=== PATIENT | female | born 1945 | race Caucasian/White ===

== ENCOUNTER 2017-05-22 11:36 | Day surgery (SDC) | payer MEDICARE ==
[~2017-05-22 11:36] MED LIST: Buffered Lidocaine 0.9% SYRIN* 5 ML/SYR SYRINGE INTRADERM ONE; Famotidine IV* 10 MG/ML 2 ML (20 mg) IV ONE; Famotidine IV* 10 MG/ML 2 ML (20 mg) ONE
[2017-05-22] MEDS ORDERED: Levalbuterol 0.63MG/3ML NEB* UNIT OF USE INH ONE ×3 (12:54→14:25)
[2017-05-22] MEDS ORDERED: fentaNYL* 50 MCG/ML 2 ML VIAL (100 MCG VIAL) ONE (13:04)
[2017-05-22] MEDS ORDERED: Midazolam* 1 MG/ML 5 ML VIAL (5 MG) ONE (13:05)
[2017-05-22] MEDS ORDERED: Rocuronium* 10 MG/ML VIAL ONE (13:05)
[2017-05-22] MEDS ORDERED: Glycopyrrolate IV* 0.2 MG/ML 1 ML VIAL ONE (13:08)
[2017-05-22] MEDS ORDERED: Succinylcholine* 20 MG/ML 10 ML VIAL ONE (13:08)
[2017-05-22] MEDS ORDERED: Propofol* 10 MG/ML 20 ML BTL IV PUSH ONE (13:08)
[2017-05-22] MEDS ORDERED: Ondansetron INJ* 2 MG/ML VIAL ONE (13:08)
[2017-05-22] MEDS ORDERED: Dexamethasone IV* 4 MG/ML 1 ML (4 MG) ONE (13:08)
[2017-05-22] MEDS ORDERED: Lidocaine 2% PF * 5 ML VIAL ONE (13:08)
[2017-05-22] MEDS ORDERED: Levalbuterol 0.63MG/3ML NEB* UNIT OF USE INH PRN (13:51)
[2017-05-22] MEDS ORDERED: oxyCODONE TAB* 5 MG TAB PO PRN (13:51)
[2017-05-22] MEDS ORDERED: DiMENhydriNATE IV* 50 MG/ML VIAL IV PUSH PRN (13:51)
[2017-05-22] MEDS ORDERED: Naloxone* 0.4 MG/ML 1 ML VIAL IV PRN (13:51)
[2017-05-22] MEDS ORDERED: fentaNYL* 50 MCG/ML 2 ML VIAL (100 MCG VIAL) IV PRN (13:51)
[2017-05-22] MEDS ORDERED: Acetaminophen TAB* 325 MG PO PRN (13:51)
[2017-05-22 14:51] VITALS: BP 126/67
--- NOTE | 2017-05-23 09:46 | PRO ---
BRONCHOSCOPY REPORT: DATE OF PROCEDURE: 05/22/17 PROCEDURE PERFORMED: Bronchoscopy with endobronchial ultrasound-guided fine needle aspiration from R4 and station 7 lymph nodes. PREPROCEDURAL DIAGNOSIS: Lung mass, rule out malignancy. POSTPROCEDURAL DIAGNOSIS: Possible lung cancer. ANESTHESIA: General anesthesia. ANESTHESIOLOGIST: Dr. Florentino. DESCRIPTION OF PROCEDURE: Informed consent was obtained from the patient prior to the procedure after all the risks and benefits were thoroughly explained. The patient recently had low-dose CT scan for lung cancer screening and was noted to have right-sided lung mass and prominent R4 lymph node. Time-out was agreed on by attending staff prior to the procedure. The patient was intubated with a size 8.0 endotracheal tube. Flexible Olympus bronchoscope was inserted through ET tube for airway inspection. Thick white secretions were noted bilaterally and were suctioned out. No endobronchial lesions were noted. The patient was noted to have tracheobronchomalacia. Secretions were suctioned and bronchoscope was withdrawn. EBUS bronchoscope was inserted through ET tube. Bronchoscope was stationed at the level of R4 lymph node, which was sampled with 5 passes. Rapid on-site evaluation revealed lymphatic tissue. Rest of the sample was placed in CytoLyt and also air dried slides were made for further stains. Station 7 lymph node was accessed with 3 passes. Rapid on- site evaluation revealed lymphatic tissue. No suspicious cells were noted on STEPHY examination. Bronchoscope was then withdrawn. The patient was extubated and seen in Recovery in optimal condition. The patient tolerated the procedure well. Awaiting final results. [id number]/[facility] #: [id number] MTDD
== END 2017-05-22 15:17 | disposition home or self-care (01) ==
LOC: OR 11:36
PROVIDERS: ATTEND Internal Medicine
DX: C77.1 Secondary and unspecified malignant neoplasm of intrathoracic lymph nodes (principal); R91.1 Solitary pulmonary nodule; R91.8 Other nonspecific abnormal finding of lung field; J44.9 Chronic obstructive pulmonary disease, unspecified; R09.02 Hypoxemia; Z87.891 Personal history of nicotine dependence
CPT/HCPCS: 36415; 81445; 86803; 88172; 88173; 88177; 88305; 88341; 88342; 88360; 93005; J0330; J1100; J2250; J2405; J2704; J3010

== ENCOUNTER 2017-06-21 11:40 | Day surgery (SDC) | payer MEDICARE ==
[~2017-06-21 11:40] MED LIST changes: -Famotidine IV* 10 MG/ML 2 ML (20 mg) IV ONE; -Famotidine IV* 10 MG/ML 2 ML (20 mg) ONE; +Famotidine TAB* 20 MG PO ONE; +Metoclopramide TAB* 10 MG PO ONE
[2017-06-21] MEDS ORDERED: Famotidine TAB* 20 MG ONE (11:45)
[2017-06-21] MEDS ORDERED: Metoclopramide TAB* 10 MG ONE (11:45)
[2017-06-21] MEDS ORDERED: Buffered Lidocaine 0.9% SYRIN* 5 ML/SYR SYRINGE ONE (11:46)
[2017-06-21] MEDS ORDERED: Dexamethasone IV* 4 MG/ML 1 ML (4 MG) ONE (12:22)
[2017-06-21] MEDS ORDERED: Ondansetron INJ* 2 MG/ML VIAL ONE (12:22)
[2017-06-21] MEDS ORDERED: Lidocaine 2% PF * 5 ML VIAL ONE (12:22)
[2017-06-21] MEDS ORDERED: Propofol* 10 MG/ML 20 ML BTL IV PUSH ONE ×2 (12:22→14:00)
[2017-06-21] MEDS ORDERED: fentaNYL* 50 MCG/ML 2 ML VIAL (100 MCG VIAL) ONE (12:23)
[2017-06-21] MEDS ORDERED: Midazolam* 1 MG/ML 5 ML VIAL (5 MG) ONE (12:23)
[2017-06-21] MEDS ORDERED: Levalbuterol 0.63MG/3ML NEB* UNIT OF USE INH ONE ×2 (12:35→12:36)
[2017-06-21] MEDS ORDERED: Naloxone* 0.4 MG/ML 1 ML VIAL IV PRN (14:41)
[2017-06-21] MEDS ORDERED: Ondansetron INJ* 2 MG/ML VIAL IV PRN (14:41)
[2017-06-21 15:19] VITALS: BP 154/87
--- NOTE | 2017-06-24 04:18 | PRO ---
DATE: 06/21/17 [facility] REFERRING PRACTITIONERS: Monroe Barrera NP, [facility]; Sampson Rios * PROCEDURE: Colonoscopy to the cecum and cold snare polypectomy right colon, hot snare polypectomy descending colon, biopsy of sigmoid colon mass, and tattooing x3 approximately 4 cm distal to the sigmoid mass. INDICATION: This 71-year-old woman who has never had a colonoscopy on low-dose lung screening (she is an active smoker) was found to have a spiculated lesion in the right lower lobe. PET scan then showed a lesion in the sigmoid colon. MRI of the brain showed a lesion that had not shown up on the PET scan. There is a question as to whether it could be a glioma. She states that she has been seeing some blood in the stool for a couple of years, but it is intermittent. Everyone else in the family has had a colonoscopy. Apparently, no malignancy was found. She does have chronic lung disease. She states that chemoradiation is the plan for her lung, start date to be determined by colonoscopic findings. ENDOSCOPIST: Dr. Rosado MEDICATIONS: Anesthesia assistance. FINDINGS: She is chronically ill appearing woman with a smoker's voice and countenance. Her abdomen is soft and nontender. Perianal inspection and rectal are normal. Initial views show an excellent prep and normal mucosa. Advancing into the sigmoid, no abnormality is noted until about 30 cm a large mass is seen. It does appear to be mobile and potentially not deforming the wall. It is at least 5.5 to 6 cm in size. It does move suggesting there is a peduncle, but it cannot be easily defined and no clear-cut plane to encircle it can be found. There are a few diverticula. Approximately, 15-20 cm proximal to the mass, a standard pedunculated polyp about 12-13 mm is seen. Due to the broad base, it was removed with snare cautery. It was removed intact. The cecum was reached with ease. It was lavaged clear. The cecum and ileocecal valve were normal. Two haustral markings distal to the ileocecal valve, a small 4-5 mm polyp was removed with cold snare and suction retrieved. Further withdrawal showed no other lesions. The mass was then biopsied times 6 or 7. Adrienne ink tattooing was then done just distal to the mass estimated 4 cm, triangulated with good localization of 1 to 1.25 cc of tattooing agent. Final views in the rectum including retroflexion were normal. IMPRESSION: 1. Saru-[id number] left colonic diverticulosis. 2. Colon polyps - right and descending colon appearing benign. 3. Sigmoid colon mass - biopsy is pending and area tattooed. It may be that the symptomatic or clinical potential of this sigmoid mass is greater than either the other abnormalities and a conservative surgical approach may serve her well. Addendum: WILLIAM MANDEL , TEQUILA (for largest lesion) [id number]/[facility] #: [id number] [facility]ITALRachel
== END 2017-06-21 15:53 | disposition home or self-care (01) ==
LOC: OR 11:40
PROVIDERS: ATTEND Internal Medicine Gastroenterology
DX: D12.4 Benign neoplasm of descending colon (principal); D12.2 Benign neoplasm of ascending colon; D12.5 Benign neoplasm of sigmoid colon; C34.91 Malignant neoplasm of unspecified part of right bronchus or lung; G93.89 Other specified disorders of brain; K92.1 Melena; J44.9 Chronic obstructive pulmonary disease, unspecified; Z87.891 Personal history of nicotine dependence; K57.30 Diverticulosis of large intestine without perforation or abscess without bleeding; R93.3 Abnormal findings on diagnostic imaging of other parts of digestive tract
CPT/HCPCS: 88305; A9270-GY; J1100; J2250; J2405; J2704; J3010

== ENCOUNTER 2017-07-02 07:19 | Day surgery (SDC) | payer MEDICARE ==
[~2017-07-02 07:19] MED LIST changes: +Levalbuterol 0.63MG/3ML NEB* UNIT OF USE INH ONE; -Metoclopramide TAB* 10 MG PO ONE
[2017-07-02] MEDS ORDERED: ceFAZolin 2 GM PREMIX (*) 2 GM/50 ML BAG IVPB ONE (07:29)
[2017-07-02] MEDS ORDERED: Famotidine TAB* 20 MG ONE (07:29)
[2017-07-02] MEDS ORDERED: Midazolam* 1 MG/ML 5 ML VIAL (5 MG) ONE (07:46)
[2017-07-02] MEDS ORDERED: fentaNYL* 50 MCG/ML 2 ML VIAL (100 MCG VIAL) ONE (07:46)
[2017-07-02] MEDS ORDERED: Levalbuterol 0.63MG/3ML NEB* UNIT OF USE INH ONE ×3 (08:05→10:25)
[2017-07-02] MEDS ORDERED: DiMENhydriNATE IV* 50 MG/ML VIAL IV PUSH PRN (08:28)
[2017-07-02] MEDS ORDERED: Acetaminophen TAB* 325 MG PO PRN (08:28)
[2017-07-02] MEDS ORDERED: Naloxone* 0.4 MG/ML 1 ML VIAL IV PRN (08:28)
[2017-07-02] MEDS ORDERED: Lidocaine 1% INJ* 10 MG/ML 30 ML SDV ONE ×2 (08:28→09:52)
[2017-07-02] MEDS ORDERED: Dexamethasone IV* 4 MG/ML 1 ML (4 MG) ONE (08:57)
[2017-07-02] MEDS ORDERED: Ketorolac INJ* 30 MG/ML 1 ML VIAL ONE (08:57)
[2017-07-02] MEDS ORDERED: DiMENhydriNATE IV* 50 MG/ML VIAL ONE (08:57)
[2017-07-02] MEDS ORDERED: Propofol* 10 MG/ML 20 ML BTL IV PUSH ONE (08:57)
--- NOTE | 2017-07-02 10:23 | BRIEFOPN ---
Brief Operative Note - Surgery Procedures: PRE/POST OP DX: RIGHT LL LUNG CA PROC: POWERPORT PLACEMENT SURG: MECENAS ASSIST: NONE ANES: LOCAL/MAC; DAYA EBL: 10ML IVF: 1100ML LR SPEC: NONE DRAINS/COMPL: NONE COND: STABLE; TO RR FINDINGS: FAILED ATTEMPT TO ACCESS L SUBCLAV/LIJ. SUCCESSFUL PLACEMENT OF RIJ 8 FR POWERPORT.
[2017-07-02] MEDS ORDERED: oxyCODONE/Acetamin 5/325 MG* TAB PO PRN (10:24)
[2017-07-02 11:03] VITALS: BP 163/85
--- NOTE | 2017-07-02 12:16 | RAD ---
CPT II Codes: G9500 INDICATION: Lung cancer TECHNIQUE: Intraoperative fluoroscopy was provided during right internal jugular vein Mediport placement. FINDINGS: 2 spot films depict placement of a right internal jugular vein Mediport with the tip terminating at the cavoatrial junction.. Fluoroscopy time: 7 seconds IMPRESSION: As above.
--- NOTE | 2017-07-02 12:17 | RAD ---
Indication: Status post central line placement. Single frontal view of the chest performed at 1033 hours was reviewed. Prior films are not available for review. No mediastinal shift is noted. Heart is of normal size and configuration. Lung romo appear clear. Central catheter is in place with the tip in the right atrium. No pneumothorax is noted. Artifact is noted in the right midlung field. IMPRESSION: NO PNEUMOTHORAX IS NOTED. CENTRAL CATHETER IS IN THE RIGHT ATRIUM.
--- NOTE | 2017-07-03 12:41 | OP ---
CC: Sampson Rios MD; Monroe Barrera NP * DATE OF OPERATION: 07/02/17 - [facility] DATE OF : 45 SURGEON: Margarito Nicole MD SSRS DEVELOPER: None. ANESTHESIOLOGIST: Dr. Florentino. ANESTHESIA: Local, MAC. PRE-OP DIAGNOSIS: Right lung carcinoma. POST-OP DIAGNOSIS: Right lung carcinoma. OPERATIVE PROCEDURE: Placement of a right internal jugular PowerPort. ESTIMATED BLOOD LOSS: 10 mL. IV FLUIDS: Crystalloid. SPECIMENS: None. DRAINS: None. COMPLICATIONS: None. COUNTS: The instrument, needle, and sponge counts were correct. DESCRIPTION OF PROCEDURE: The patient was brought to the operating room and placed on the table supine. Sequential compression devices were placed on both lower extremities. Intravenous sedation was administered. Her neck and chest were prepped and draped in sterile fashion and a time-out was performed. Local anesthetic was infiltrated for a left subclavian approach. Multiple attempts were made to access the left subclavian vein, without success. The patient was quite uncooperative at this point and therefore, no additional subclavian attempts were made on the left side; instead a decision was made to access the left internal jugular vein and this was performed using ultrasound guidance. After accessing the vein, attempts to pass the guidewire were unsuccessful in directing the wire into the superior vena cava. It seemed to preferentially want to go into the azygos vein or curl back upon itself. This led to abandoning the left internal jugular approach. The decision was made to perform access in the right internal jugular, again under ultrasound guidance, and this was achieved without difficulty and the position of the wire was confirmed under fluoroscopy. Local anesthetic was then infiltrated into the right upper chest to create the pocket. A transverse incision was made with a scalpel and then the subcutaneous tissues were divided with cautery and a pocket was created inferior to the incision. An 8-Ethiopian PowerPort was then back tunneled from a counter incision made at the guidewire insertion site in the right neck and then the peel-away sheath and dilator were advanced over the guidewire into the superior vena cava under direct visualization. The catheter was advanced to about 20 cm, with the tip being identified at the atriocaval junction. The catheter was cut to 28 cm and connected to the port, which was placed into the pocket, and sutured in place with a single 2-0 Prolene suture. The port was accessed. It estela and flushed easily. The pocket was closed in two layers with 3-0 Vicryl to approximate subcutaneous tissue, 4-0 Monocryl in running fashion to approximate the skin at the pocket, and also at the counter incision. Steri-Strips were applied with Tegaderm dressing. The patient tolerated the procedure well and was transferred to Recovery in stable condition. A postprocedural x-ray revealed good position of the catheter and the port, and no evidence of pneumothorax. [id number]/[facility] #: [id number] [facility]
== END 2017-07-02 11:15 | disposition home or self-care (01) ==
LOC: OR 07:19
PROVIDERS: ATTEND Surgery
DX: C34.31 Malignant neoplasm of lower lobe, right bronchus or lung (principal)
CPT/HCPCS: 71045; 76000; A9270-GY; C1788; J0690; J1100; J1240; J1642; J1885; J2250; J2704; J3010

== ENCOUNTER 2017-08-08 15:43 | Inpatient (IN) | payer MEDICARE ==
[2017-08-08] MEDS ORDERED: Ondansetron INJ* 2 MG/ML VIAL IV PRN (16:00)
[2017-08-08] MEDS ORDERED: Acetaminophen TAB* 325 MG PO PRN (16:00)
[2017-08-08] MEDS ORDERED: Digoxin IV* 0.5 MG/2 ML AMP (0.25 MG/ML) IV SLOW PU ONE (16:05)
[2017-08-08] MEDS ORDERED: Iohexol 350* (CONTRAST) 500 ML MDV IV ONE (18:33)
[2017-08-08] MEDS: Enoxaparin(*) 80 MG/0.8 ML SYR SUBCUT SCH (19:26)
--- NOTE | 2017-08-08 19:37 | RAD ---
INDICATION: Chest pain, new atrial fibrillation. COMPARISON: Comparison is made with a prior PET/CT study from May 31, 2017. TECHNIQUE: A CT angiogram of the chest was performed with intravenous following intravenous injection of 62 ml of Omnipaque 350 nonionic contrast. Contiguous axial sections were obtained from the lung apices through the lung bases. Images were reconstructed in the coronal and sagittal planes. FINDINGS: There is relatively homogeneous opacification of the pulmonary arteries. No intraluminal filling defect or pulmonary embolism is seen. The heart is within normal limits in size. No pericardial effusion is present. The thoracic aorta is normal in caliber and demonstrates homogeneous contrast opacification. No significant enlarged mediastinal or hilar lymph nodes are seen. There is a small air-containing structure adjacent to the right lateral aspect of the esophagus present at the thoracic inlet and unchanged from the prior PET/CT study suggestive of a diverticulum. There is mild to moderate centrilobular emphysematous change. There is a 1 cm nodule present in the right lower lobe which appears slightly less prominent than on the prior exam and previously measured approximately 1.3 cm. There is a small infiltrate adjacent to the right heart border likely representing atelectasis. There is a small infiltrate in the left lower lobe most consistent with dependent subsegmental atelectasis. 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 There is a small hypodense hepatic lesions seen on the most inferior image measuring 0.6 cm in size and not well seen on the prior noncontrast study. No significant focal osseous abnormality is seen. IMPRESSION: 1. NO EVIDENCE FOR PULMONARY EMBOLISM. 2. SMALL RIGHT MIDDLE LOBE INFILTRATE SUGGESTIVE OF ATELECTASIS. 3. RIGHT LOWER LOBE PULMONARY NODULE SLIGHTLY SMALLER IN SIZE. 4. SMALL HYPODENSE HEPATIC LESION RECOMMEND A HEPATIC ULTRASOUND FOR FURTHER EVALUATION.
[2017-08-08] MEDS: Sucralfate SUSP 1 GM/10 ml 10 ML UDC PO SCH (23:16)
[2017-08-08] MEDS: NS 0.9% 1000 ML* 1,000 ML IV SCH (23:20)
[2017-08-09] MEDS: Enoxaparin(*) 80 MG/0.8 ML SYR SUBCUT SCH (05:36)
[2017-08-09 06:42] LABS: ABS Basophils 0 10^3/ul (0-0.2); ABS Eosinophils 0 10^3/ul (0-0.6); ABS Lymphocytes 0.4 10^3/ul (1.0-4.8); ABS Monocytes 0.1 10^3/ul (0-0.8); ABS Nucleated RBC 0 10^3/ul; Hematocrit 31 % (35-47); Hemoglobin 10.7 g/dl (12.0-16.0); Lymphocyte % 24.4 % (25-47); Mean Corpuscular HGB Conc 34 g/dl (31-36); Mean Corpuscular Hemoglobin 34 pg (27-31); Mean Corpuscular Volume 99 fL (80-97); Nucleated Red Blood Cells % 0; Platelet Count 149 10^3/ul (150-450); Red Blood Count 3.16 10^6/ul (4.00-5.40); Red Cell Distribution Width 15 % (10.5-15); White Blood Count 1.5 10^3/ul (3.5-10.8)
[2017-08-09 06:52] LABS: EGFR Non-African American 130.6 (>60)
[2017-08-09] MEDS: Sucralfate SUSP 1 GM/10 ml 10 ML UDC PO SCH ×2 (07:45→12:51)
[2017-08-09] MEDS: NS 0.9% 1000 ML* 1,000 ML IV SCH (07:50)
[2017-08-09] MEDS ORDERED: Magnesium Oxide TAB* 400 MG PO SCH (09:00)
[2017-08-09] MEDS ORDERED: Sucralfate TAB* 1 GM PO SCH (09:00)
[2017-08-09] MEDS ORDERED: Spiriva Inhaler DEVICE* 1 EACH DEVICE INH ONE (09:00)
[2017-08-09] MEDS ORDERED: Tiotropium CAP.INH* CAP.INH/18 MCG (USE ORDER SET !) INH SCH (09:00)
[2017-08-09] MEDS ORDERED: Fluticasone/Vilanterol MDI(NF) 200/25 MDI INH SCH (09:00)
--- NOTE | 2017-08-09 10:48 | ECHO ---
Patient: MARGARITA HASKINS [facility] Rec#: [id number] : 1945 Date: 08/09/2017 Age: 71y Height: 149.86 cm / 59.0 in Weight: 65.32 kg / 144.0 lbs Sex: F BSA: 1.6 Room#: [facility] Admit Date#: 08/08/2017 Type: Inpatient Referring: Enrique Dias Reading: Ulisses Spencer MD Boat Driver: Zuleyma Thorne RDCS CC: Monroe Barrera, DO Transthoracic Echocardiogram Indication: New A-fib BP: 131/68 HR: 82 Rhythm: NSR Findings History: Lung cancer with chemo rx, former smoker,COPD,ETOH use. Technical Comments: The study quality is good. Completed at 0946. Left Ventricle: The left ventricular chamber size is decreased. Mild concentric left ventricular hypertrophy is observed. There is a prominent septal knuckle. Global left ventricular wall motion and contractility are within normal limits. There is normal left ventricular systolic function. The estimated ejection fraction is 55-60%. Abnormal left ventricular diastolic function is observed. Left Atrium: The left atrial chamber size is normal. Right Ventricle: The right ventricular cavity size is normal. The right ventricular global systolic function is normal. Right Atrium: The right atrial cavity size is normal. A prominent eustachian valve is noted in the right atrium. Aortic Valve: The aortic valve is trileaflet. There is no evidence of aortic valve thickening. There is no evidence of aortic regurgitation. There is no evidence of aortic stenosis. Mitral Valve: The mitral valve leaflets are mildly thickened. There is mild mitral regurgitation. The mitral regurgitant jet is laterally directed. There is no evidence of mitral stenosis. Tricuspid Valve: The tricuspid valve leaflets are normal. There is trace to mild tricuspid regurgitation. There is evidence that pulmonary hypertension may be underestimated. There is no tricuspid stenosis. Pulmonic Valve: The pulmonic valve appears normal. Aorta: There is no dilatation of the ascending aorta. There is no dilatation of the aortic arch. There is no dilation of the aortic root. Pulmonary Artery: The main pulmonary artery appears normal. Venous: The inferior vena cava appears normal in size. There is a greater than 50% respiratory change in the inferior vena cava dimension. Summary: There was not any prior study for comparison. Conclusions Mild concentric left ventricular hypertrophy is observed. There is normal left ventricular systolic function. The estimated ejection fraction is 55-60%. Abnormal left ventricular diastolic function is observed. There is mild mitral regurgitation. There is trace to mild tricuspid regurgitation. Normal pulmonary systolic pressure. Measurements Name Value Normal Range RVIDd (AP) 2D 2.6 cm (0.9 - 2.6) RVDdMajor (2D) 3.4 cm (2.2 - 4.4) RAd ISD 4CH 5.3 cm (3.4 - 4.9) RA (A4C)W 3 cm (2.9 - 4.6) IVSd (2D) 1.1 cm (0.6 - 1) LVPWd (2D) 1.1 cm (0.6 - 1) LVIDd (2D) 3.2 cm (3.6 - 5.4) LVIDs (2D) 2 cm - LV FS (2D) 39 % (25 - 45) Aortic Annulus 1.7 cm (1.4 - 2.6) Ao root diameter (2D) 2.9 cm (2.1 - 3.5) Ascending Ao 2.9 cm (2.1 - 3.4) Aortic arch 2.4 cm (1.8 - 3.4) Descending Ao 0.6 cm - LA dimension (AP) 2D 3.8 cm (2.3 - 3.8) LAd ISD 4CH 5 cm (2.9 - 5.3) LA ISD 4CH W 3.7 cm (2.5 - 4.5) Name Value Normal Range LA ESV SP 4CH (A/L) 44 ml - LA ESV SP 2CH (A/L) 32 ml - LA ESV BP (A/L) 40 ml - LA ESV BP (A/L) index 27.84 ml/m2 - LA ESV SP 4CH (MOD) 40 ml - LA ESV SP 2CH (MOD) 31 ml - Name Value Normal Range MV E-wave Vmax 0.8 m/sec - MV deceleration time 176 msec - MV A-wave Vmax 1 m/sec - MV E:A ratio 0.84 ratio - LV septal e' Vmax 0.08 m/sec - LV lateral e' Vmax 0.07 m/sec - Name Value Normal Range AV Vmax 1.5 m/sec - AV VTI 30.4 cm - AV peak gradient 8.78 mmHg - AV mean gradient 4.89 mmHg - LVOT Vmax 1.1 m/sec - LVOT VTI 25.6 cm - LVOT peak gradient 4.94 mmHg - LVOT mean gradient 1.97 mmHg - Name Value Normal Range MR Vmax 3.8 m/sec - MR VTI 109 cm - Name Value Normal Range TR Vmax 2.7 m/sec - TR peak gradient 29 mmHg - RAP 3 mmHg - RVSP 32 mmHg - IVC diameter 1.5 cm - Name Value Normal Range PV Vmax 0.8 m/sec - PV peak gradient 2.3 mmHg -
[2017-08-09 16:42] VITALS: BP 137/81
== END 2017-08-09 17:50 | disposition home or self-care (01) | DRG 309 ==
LOC: ICU 16:00 → MEDTELE 17:20
PROVIDERS: ADMIT Internal Medicine Hematology & Oncology; ATTEND Internal Medicine Hematology & Oncology
PROC: DB022ZZ Beam Radiation of Lung using Photons >10 MeV (ICD-10-PCS; principal; 2017-08-08)
DX: I48.91 Unspecified atrial fibrillation (principal); C77.9 Secondary and unspecified malignant neoplasm of lymph node, unspecified; C34.30 Malignant neoplasm of lower lobe, unspecified bronchus or lung; K20.9 Esophagitis, unspecified; T45.1X5A Adverse effect of antineoplastic and immunosuppressive drugs, initial encounter; F12.90 Cannabis use, unspecified, uncomplicated; I95.9 Hypotension, unspecified; J44.9 Chronic obstructive pulmonary disease, unspecified; M19.90 Unspecified osteoarthritis, unspecified site; Z87.891 Personal history of nicotine dependence; Z72.89 Other problems related to lifestyle; Z80.3 Family history of malignant neoplasm of breast; Z88.8 Allergy status to other drugs, medicaments and biological substances; Z80.8 Family history of malignant neoplasm of other organs or systems
CPT/HCPCS: 36415; 36591; 71275; 80048; 80053; 83735; 83880; 84484; 85025; 85379; 87641; 93005; 93306; 94640; 96361; 96368; 96375; 96413; 96417; 99214; 99223; A9270-GY; G0463; J1100; J1200; J1642; J1650; J2469; J3475; J9045; J9267; Q9967

== ENCOUNTER 2017-10-15 07:30 | Observation (INO) | payer MEDICARE ==
--- NOTE | 2017-10-01 17:12 | HP ---
CC: Dr. Rios; Dr. Arce; [facility]; Dr. De La Cruz * PREOPERATIVE HISTORY AND PHYSICAL: DATE OF ADMISSION/SURGERY: 10/15/17 This patient is scheduled for AA admission by Dr. Nicole on 10/15/17. DATE OF PREOPERATIVE HISTORY AND PHYSICIAN EXAMINATION: 10/01/17. ATTENDING SURGEON: Dr. Margarito Nicole * (dictated by Irene Wagner NP) CHIEF COMPLAINT: Colon polyp. HISTORY OF PRESENT ILLNESS: The patient is a 71-year-old female with a history of right lung cancer, who recently completed definitive combination chemotherapy and radiation therapy. She had a colonoscopy prior to treatment that demonstrated numerous polyps including a large polyp in the sigmoid colon that was biopsied as a tubular adenoma. This was too large to be removed endoscopically and was tattooed. Since she has completed her cancer treatment, she has been referred for surgical consultation regarding her colon. Dr. Nicole reviewed her endoscopy report and pathology report. Dr. Nicole examined the patient and reviewed the above findings with her and has recommended laparoscopic sigmoid colon polypectomy or partial colectomy with intraoperative colonoscopy with the assistance of Dr. Mclaughlin. Dr. Nicole discussed the nature of the surgical procedure and Dr. Mclaughlin also met the patient and discussed his part in the procedure; the relevant risks and benefits were discussed and today, I reviewed the typical hospitalization and postoperative recovery. The patient has had a chance to ask questions and stated that she understands the information and is satisfied with the answers given to her questions. She will sign surgical consent on the day of surgery. She will take a bowel cleansing prep consisting of Colyte, clear liquids, neomycin and metronidazole on the day before surgery. PAST MEDICAL HISTORY: Significant for chronic obstructive pulmonary disease and she is followed by Dr. Arce; right lung cancer with definitive treatment with chemotherapy and radiation therapy and she is followed by Dr. Rios; a brief episode of atrial fibrillation requiring an overnight stay at [facility], 08/08/17. She also has a small, stable brain lesion in the right temporal lobe. PAST SURGICAL HISTORY: PowerPort placement by Dr. Nicole, June 2017; teeth extraction remotely. MEDICATIONS: 1. Xarelto 20 mg p.o. daily and she will take her last dose on 10/11/17 , in preparation for surgery. 2. Metoprolol ER 25 mg p.o. daily. 3. Breo Ellipta 200/25 mcg per inhalation, 1 inhalation daily. 4. Spiriva Respimat 2.5 mg per actuation 1 puff daily. 5. Oxygen 2 L at night. 6. Ventolin inhaler 2 puffs every 6 hours. 7. Multivitamin daily. 8. Magnesium 400 mg daily. 9. CoQ10 100 mg daily. 10. Carafate 1 g in 10 mL 4 times a day p.r.n. ALLERGIES: CHLORAPREP causes severe rash. FAMILY HISTORY: Father age 93 with melanoma and brain cancer. Mother is living at age 93. One sister with history of breast cancer. No known anesthesia complications, bleeding tendencies, or clotting disorders. SOCIAL HISTORY: She is single and lives with her sister and [id number]; she has good family support; she currently is not working; she is a former smoker of 1 pack-a-day for 50 years. She drinks alcohol in the order of 5 to 6 alcoholic beverages per day. REVIEW OF SYSTEMS: Constitutional: No fevers or chills. No excessive fatigue or significant weight loss. Endocrine: No diabetes or thyroid disease. Hematologic: Mild easy bruising while on Xarelto. No significant bleeding. No history of blood transfusions. Respiratory: Mild dyspnea on exertion. No chronic cough or hemoptysis. Cardiovascular: She had an episode of chest pain while she was receiving radiation therapy and was found to be in rapid atrial fibrillation in July 2017, and was admitted to [facility] overnight with spontaneous resolution of the atrial fibrillation. Her echocardiogram at that time revealed an ejection fraction of 55% to 60% with normal left ventricular systolic function. An EKG from 08/12/17, revealed normal sinus rhythm. She has had no recurrent chest pain or palpitations. Gastrointestinal : No nausea or vomiting. She states that her stools have been loose, but she has not noticed any recent rectal bleeding; she denies any heartburn. Genitourinary: No dysuria. Musculoskeletal: Mild lower back pain. Integumentary: No chronic rashes or skin changes. Neurologic: Occasionally can lose balance and has a history of a small, stable lesion in the right temporal lobe. General: No history of deep vein thrombosis or pulmonary embolism; no previous anesthesia complications. PHYSICAL EXAMINATION GENERAL SURVEY: The patient is a 71-year-old female, well-developed, well- nourished, in no acute distress. VITAL SIGNS: Height 59 inches, weight 144 pounds, body mass index 29, blood pressure 130/80, pulse 84 and regular, respiratory rate 18, temperature 98.5, tympanic. HEENT: Benign. NECK: Supple. No cervical lymphadenopathy. No thyromegaly. LUNGS: Breath sounds bilaterally clear and equal. HEART: Regular rate and rhythm. No murmurs or rubs appreciated. BREASTS: Exam done recently, not repeated. ABDOMEN: Active bowel sounds. Soft, nondistended. No scars. No obvious masses or hernias. No organomegaly. BACK: No CVA tenderness. PELVIC: Exam deferred. RECTAL: Exam deferred. EXTREMITIES: Warm without edema or skin ulceration. NEUROLOGIC: Alert and oriented x3. Steady gait. SKIN: Warm, dry, intact. IMPRESSION: Polyp of colon. PLAN: AA admission to Dr. Nicole' service on 10/15/17, for laparoscopic sigmoid colon polypectomy or partial colectomy with intraoperative colonoscopy. The patient will take a bowel cleansing prep on the day before surgery consisting of Colyte laxative, clear liquids, neomycin, and metronidazole. INES WAGNER NP [id number]/[facility] #: [id number] PRANAY
--- NOTE | 2017-11-05 19:47 | HP ---
CC: Dr. Rios; Dr. Arce; [facility]; Dr. De La Cruz PREOPERATIVE HISTORY AND PHYSICAL UPDATE: DATE OF ADMISSION: 11/12/17 This patient is scheduled for AA admission by Dr. Nicole on 11/12/17. DATE OF PREOPERATIVE HISTORY AND PHYSICAL UPDATE: 11/05/17. ATTENDING SURGEON: Dr. Margarito Nicole * (dictated by Irene Wagner NP). CHIEF COMPLAINT: Colon polyp. HISTORY OF PRESENT ILLNESS: The patient is a 71-year-old female with a history of right lung cancer, who recently completed definitive combination chemotherapy and radiation therapy. She had a colonoscopy prior to treatment that demonstrated numerous polyps including a large polyp in the sigmoid colon that was biopsied as a tubular adenoma. This was too large to be removed endoscopically and was tattooed. Since she has completed her cancer treatment, she has been referred for surgical consultation regarding her colon. Dr. Nicole reviewed her endoscopy and pathology reports, examined the patient and reviewed the above findings with her and has recommended laparoscopic sigmoid colon polypectomy or partial colectomy with intraoperative colonoscopy with the assistance of Dr. Mclaughlin. Dr. Nicole discussed the nature of the surgical procedure and Dr. Mclaughlin also met the patient to discuss his part in the procedure. The relevant risks and benefits were discussed, the typical hospitalization, and postoperative recovery. The patient has had a chance to ask questions and stated that she understands the information and is satisfied with the answers given to her questions. She will sign surgical consent on the day of surgery. She will take a bowel cleansing prep consisting of Colyte, clear liquids, neomycin and metronidazole on the day before surgery. She will take her last dose of Xarelto in preparation for surgery on 11/08/17. She will complete cardiac clearance with Dr. De La Cruz, on 11/08/17 after she undergoes a nuclear stress test on 11/07/17. PAST MEDICAL HISTORY: Significant for chronic obstructive pulmonary disease and she is followed by Dr. Arce; right lung cancer with definitive treatment with chemotherapy and radiation, followed by Dr. Rios; a brief episode of atrial fibrillation with a rate of 165 beats per minute requiring an overnight stay at [facility], 08/08/17; she also has a small, stable brain lesion in the right temporal lobe. PAST SURGICAL HISTORY: PowerPort placement by Dr. Nicole, June 2017; teeth extraction remotely. MEDICATIONS: 1. Xarelto 20 mg p.o. daily and she will take her last dose on Saturday, . 2. Metoprolol ER 25 mg p.o. daily. 3. Breo Ellipta 200/25 mcg per inhalation, 1 inhalation daily. 4. Spiriva Respimat 2.5 mg per actuation 1 puff daily. 5. Oxygen 2 L at night. 6. Ventolin inhaler 2 puffs every 6 hours. 7. Multivitamin daily. 8. Magnesium supplement 400 mg daily. 9. Carafate 1 g in 10 mL 4 times a day p.r.n. ALLERGIES: CHLORAPREP causes severe rash. FAMILY HISTORY: Father , age 93 with melanoma and brain cancer. Mother is living at age 93; one sister with history of breast cancer; no known anesthesia complications, bleeding tendencies, or clotting disorders. SOCIAL HISTORY: She is single and lives with her sister and [id number]; she currently is not working; she is a former smoker of 1 pack-a-day for 50 years. She has a history of drinking alcohol on the order of 5 to 6 alcoholic beverages per day. REVIEW OF SYSTEMS: Constitutional: No fevers or chills. No excessive fatigue or significant weight loss. Endocrine: No diabetes or thyroid disease. Hematologic: Mild easy bruising while on Xarelto, no significant bleeding. No history of blood transfusions. Respiratory: Mild dyspnea on exertion; no chronic cough or hemoptysis. Cardiovascular: She had an episode of chest pain while receiving radiation therapy and was found to be in rapid atrial fibrillation in July of 2017 and was admitted to [facility] overnight with spontaneous resolution of the atrial fibrillation. Her echocardiogram at that time revealed an ejection fraction of 55% to 60% with normal left ventricular systolic function. She is currently being followed by Dr. De La Cruz, and an EKG in Dr. De aL Cruz's on 11/01/17, revealed normal sinus rhythm at 70 beats per minute. The patient will undergo a nuclear stress test on 11/07/17 in preparation for surgery and she has a followup visit with Dr. De La Cruz, on 11/08/17. We will obtain those results preoperatively. She denies any current chest pain or palpitations. Gastrointestinal: No nausea or vomiting, she states that her stools are typically loose, but she denies any rectal bleeding; she denies heartburn. Genitourinary: No dysuria. Musculoskeletal: Mild lower back pain. Integumentary: No chronic rashes or skin changes. Neurologic: Occasionally can lose balance and has a history of a small, stable lesion in the right temporal lobe. General: No history of deep vein thrombosis or pulmonary embolism; no previous anesthesia complications. PHYSICAL EXAMINATION GENERAL SURVEY: The patient is a 71-year-old female, well-developed, well- nourished, in no acute distress. VITAL SIGNS: Height 59 inches, weight 140 pounds, body mass index 29, blood pressure 140/80, pulse 90 and regular, respiratory rate 18, temperature 98.5, tympanic. HEENT: Benign. NECK: Supple. No cervical lymphadenopathy. No thyromegaly. No carotid bruits. LUNGS: Breath sounds bilaterally clear and equal. HEART: Regular rate and rhythm. Soft 2/6 systolic murmur heard in the apex. ABDOMEN: Active bowel sounds. Soft, nondistended. No surgical scars, nontender throughout. No obvious masses or hernias. No organomegaly. BACK: No CVA tenderness. PELVIC: Exam deferred. RECTAL: Exam deferred. EXTREMITIES: Warm without edema or skin ulcerations. Distal pulses not easily palpated. NEUROLOGIC: Alert and oriented x3. Steady gait. SKIN: Warm, dry, intact. IMPRESSION: Polyp of colon. PLAN: AA admission to Dr. Nicole' service on 11/12/17, for laparoscopic sigmoid colon polypectomy or partial colectomy with intraoperative colonoscopy. The patient will take a bowel cleansing prep on the day before surgery consisting of Colyte laxative, clear liquids, neomycin, and metronidazole. She will be cleared to proceed with surgery by Dr. De La Cruz and has an office visit with her on 11/08/17 following a nuclear stress test on . She will take her last dose of Xarelto on Saturday11/08/17. INES WAGNER, RO[employer] [id number]/CPS #: [id number] PRANAY
[2017-11-11] MEDS ORDERED: Buffered Lidocaine 0.9% SYRIN* 5 ML/SYR SYRINGE INTRADERM ONE (09:41)
[2017-11-12] MEDS ORDERED: ERTApenem(*) 1 GM in NS 0.9% 50 ML* 50 ML IVPB SCH ×2
--- OUTSIDE RECORDS SUMMARY | 2017-11-12 05:59 | XMS REPORT ---
:1945 External Reference #:[id number] Author Organization [employer] Address [address] [place] [address] Phone [phone] Care Team Providers Name Role Phone Paola [place] NP Primary Care Physician Unavailable Payers Type Date Identification Numbers Payment Provider Subscriber Medicare Primary Policy Number: [id number] Medicare Margarita Haskins PayID: [id number] [facility] [address] [place] [address] Problems Date Description Provider Status Onset: 11/01/2017 Paroxysmal atrial fibrillation Maricarmen De La Cruz M.D. Active Family History Date Family Member(s) Problem(s) Comments Father Cancer Father due to Melanoma () Father due to Brain Cancer () Mother No Current Problems Siblings 3 2 sisters and 1 brother Social History Type Date Description Comments Marital Status Single Lives With Sister Lives With Brother in law Occupation Facility Coordinator/Regional Operations Director Cigarette Use Former Cigarette Smoker Smoked 1 PPD for 50 years ETOH Use Currently consumes alcohol 5-6 drinks per day Smoking Patient is a former smoker Recreational Drug Use Sporadically uses Marijuana Daily Caffeine Consumes on average 2 cups of regular coffee per day Exercise Type/Frequency Exercises sporadically walking 20 minutes. Allergies, Adverse Reactions, Alerts Date Description Reaction Status Severity Comments 07/08/2017 Chloraprep One-Step active rash 03/21/2017 NKDA inactive Medications Medication Date Status Form Strength Qnty SIG Indications Ordering Provider Neomycin 10/01 Active Tablets 500mg 6tabs 2 tabs at Irene Sulfate /2018 1pm and 7pm B. on the day [place], before FINANCIAL REPORTING ACCOUNTANT surgery and 2 tabs at 7am on the day of surgery Metronidazole 10/01 Active Tablets 500mg 3tabs 1 tablet by Irene /2018 mouth at 1pm B. and 7pm on [place], the day FINANCIAL REPORTING ACCOUNTANT before surgery and 1 tablet at 6 am the morning of surgery Colyte With 10/01 Active Solution 240gm 4000m take as Irene Flavor Packs /2018 Rec l directed on B. the day [place], before FINANCIAL REPORTING ACCOUNTANT surgery Breo Ellipta 04/22 Active Aerosol 200-25mcg 60uni take 1 J44.9 Ashley S. /2018 /Inh ts inhaled Foster, daily N.P. Spiriva 04/22 Active Aerosol 2.5mcg/Ac 12gm 1 puff every [facility] Respimat MD Yazmin Oxygen 04/22 Active Misc use 2l at R09.02 Ashley S. /2017 night and Foster, with N.P. ambulation. please provide patient with portable oxygen concentrator Ventolin HFA Active Aerosol 108(90Bas 54gm inhale two Ashley S. /0000 e) puffs by Foster, mcg/Act mouth every N.P. 6 hours as needed Multi For 50+ 00 Active Tablets 1 by mouth Unknown /0000 every day Magnesium 00 Active Tablets 400mg 1 by mouth Unknown /0000 twice every day Xarelto Active Tablets 20mg 1 by mouth Unknown /0000 every day Metoprolol 00 Active Tablets ER 25mg 1 by mouth Unknown Succinate ER /0000 24HR every day Bevespi 03/27 Hx Aerosol 9-4.8mcg/ 2unit 2 puffs [facility] Aerosphere /2018 Act s twice daily MD Yazmin - 04/22 Spiriva Hx Aerosol 2.5mcg/Ac 1 puff every Unknown Respimat /0000 t day - 04/21 Co Q10 Hx Capsules 400mcg by mouth a Unknown /0000 day - 10/31 Carafate Hx Suspension 1GM/10ML give 10ml by Unknown /0000 mouth four times a day as needed Vital Signs Date Vital Result Comment 11/08/2017 Heart Rate 84 /min BP Systolic 142 mmHg L arm, regular cuff BP Diastolic 82 mmHg L arm, regular cuff Ejection Fraction 74% NLM, 11/07/17 11/05/2017 Heart Rate 90 /min BP Systolic Sitting 140 mmHg BP Diastolic Sitting 80 mmHg Respiratory Rate 18 /min Body Temperature 98.5 F 11/01/2017 Height 59 inches 4'11" Weight 139.00 lb w/ shoes Heart Rate 78 /min BP Systolic Sitting 122 mmHg lue rg cuff BP Diastolic Sitting 72 mmHg lue rg cuff BP Systolic Standing 140 mmHg lue rg cuff BP Diastolic Standing 78 mmHg lue rg cuff Respiratory Rate 18 /min BMI (Body Mass Index) 28.1 kg/m2 Ejection Fraction 55-60% 08/09/17 10/01/2017 Height 59 inches 4'11" Weight 144.00 lb Heart Rate 84 /min BP Systolic Sitting 130 mmHg BP Diastolic Sitting 80 mmHg Respiratory Rate 18 /min Body Temperature 98.5 F BMI (Body Mass Index) 29.1 kg/m2 09/09/2017 Height 59 inches 4'11" Weight 144.00 lb Heart Rate 76 /min BP Systolic 114 mmHg BP Diastolic 70 mmHg Respiratory Rate 18 /min Body Temperature 97.9 F BMI (Body Mass Index) 29.1 kg/m2 07/01/2017 Height 59 inches 4'11" Weight 147.00 lb Heart Rate 78 /min BP Systolic 116 mmHg BP Diastolic 70 mmHg Respiratory Rate 16 /min Body Temperature 97.7 F BMI (Body Mass Index) 29.7 kg/m2 06/01/2017 Height 59 inches 4'11" Weight 147.00 lb Heart Rate 86 /min BP Systolic Sitting 124 mmHg BP Diastolic Sitting 80 mmHg Respiratory Rate 16 /min O2 % BldC Oximetry 94 % on Ra BMI (Body Mass Index) 29.7 kg/m2 04/22/2017 Height 59 inches 4'11" Weight 147.12 lb with shoes Heart Rate 66 /min BP Systolic Sitting 138 mmHg Rue reg cuff BP Diastolic Sitting 90 mmHg Rue reg cuff Respiratory Rate 18 /min O2 % BldC Oximetry 94 % On Ra BMI (Body Mass Index) 29.7 kg/m2 03/21/2017 Height 59 inches 4'11" Weight 144.00 lb Heart Rate 80 /min BP Systolic Sitting 126 mmHg BP Diastolic Sitting 84 mmHg Respiratory Rate 14 /min O2 % BldC Oximetry 95 % BMI (Body Mass Index) 29.1 kg/m2 Neck Circumference in inches 14 Results Test Date Test Result H/L Range Note CBC Auto Diff 11/05/2017 White Blood Count 5.3 10^3/uL 3.5-10.8 Red Blood Count 3.46 10^6/uL Low 4.00-5.40 Hemoglobin 11.7 g/dL Low 12.0-16.0 Hematocrit 35 % 35-47 Mean Corpuscular Volume 102 fL High 80-97 Mean Corpuscular Hemoglobin 34 pg High 27-31 Mean Corpuscular HGB Conc 33 g/dL 31-36 Red Cell Distribution Width 16 % High 10.5-15 Platelet Count 397 10^3/uL 150-450 Mean Platelet Volume 7.7 um3 7.4-10.4 Abs Neutrophils 3.3 10^3/uL 1.5-7.7 Abs Lymphocytes 1.1 10^3/uL 1.0-4.8 Abs Monocytes 0.7 10^3/uL 0-0.8 Abs Eosinophils 0.1 10^3/uL 0-0.6 Abs Basophils 0.1 10^3/uL 0-0.2 Abs Nucleated RBC 0 10^3/uL Granulocyte % 62.6 % 38-83 Lymphocyte % 20.4 % Low 25-47 Monocyte % 13.6 % High 0-7 Eosinophil % 2.0 % 0-6 Basophil % 1.4 % 0-2 Nucleated Red Blood Cells % 0.1 Basic Metabolic Panel 11/05/2017 Sodium 137 mmol/L 135-145 Potassium 4.8 mmol/L 3.5-5.0 Chloride 102 mmol/L 101-111 Co2 Carbon Dioxide 29 mmol/L 22-32 Anion Gap 6 mmol/L 2-11 Glucose 92 mg/dL 70-100 Blood Urea Nitrogen 13 mg/dL 6-24 Creatinine 0.57 mg/dL 0.51-0.95 BUN/Creatinine Ratio 22.8 High 8-20 Calcium 9.0 mg/dL 8.6-10.3 Egfr Non- 104.6 >60 Egfr 126.5 >60 1 Lipid Profile (Trig/Chol/HDL) 11/01/2017 Triglycerides 70 mg/dL 2 Cholesterol 186 mg/dL 3 HDL Cholesterol 66.9 mg/dL 4 LDL Cholesterol 105 mg/dL 5 Comp Metabolic Panel 10/01/2017 Sodium 137 mmol/L 135-145 Potassium 4.4 mmol/L 3.5-5.0 Chloride 101 mmol/L 101-111 Co2 Carbon Dioxide 29 mmol/L 22-32 Anion Gap 7 mmol/L 2-11 Glucose 98 mg/dL 70-100 Blood Urea Nitrogen 8 mg/dL 6-24 Creatinine 0.56 mg/dL 0.51-0.95 BUN/Creatinine Ratio 14.3 8-20 Calcium 9.4 mg/dL 8.6-10.3 Total Protein 6.6 g/dL 6.4-8.9 Albumin 3.5 g/dL 3.2-5.2 Globulin 3.1 g/dL 2-4 Albumin/Globulin Ratio 1.1 1-3 Total Bilirubin 0.40 mg/dL 0.2-1.0 Alkaline Phosphatase 63 U/L 34-104 Alt 19 U/L 7-52 Ast 20 U/L 13-39 Egfr Non- 106.7 >60 Egfr 129.1 >60 6 CBC Auto Diff 10/01/2017 White Blood Count 3.7 10^3/uL 3.5-10.8 Red Blood Count 3.48 10^6/uL Low 4.00-5.40 Hemoglobin 12.3 g/dL 12.0-16.0 Hematocrit 35 % 35-47 Mean Corpuscular Volume 101 fL High 80-97 Mean Corpuscular Hemoglobin 35 pg High 27-31 Mean Corpuscular HGB Conc 35 g/dL 31-36 Red Cell Distribution Width 19 % High 10.5-15 Platelet Count 290 10^3/uL 150-450 Mean Platelet Volume 8.1 um3 7.4-10.4 Abs Neutrophils 2.3 10^3/uL 1.5-7.7 Abs Lymphocytes 0.7 10^3/uL Low 1.0-4.8 Abs Monocytes 0.6 10^3/uL 0-0.8 Abs Eosinophils 0.2 10^3/uL 0-0.6 Abs Basophils 0 10^3/uL 0-0.2 Abs Nucleated RBC 0 10^3/uL Granulocyte % 61.7 % 38-83 Lymphocyte % 17.8 % Low 25-47 Monocyte % 14.9 % High 0-7 Eosinophil % 4.7 % 0-6 Basophil % 0.9 % 0-2 Nucleated Red Blood Cells % 0.3 Laboratory test 05/31/2017 Point of Care 114 mg/dL High 70-100 7 finding Glucose Laboratory test 05/22/2017 Cytology Non-Generalist SEE RESULT BELOW 8 finding Miscellaneous Test See Comment 9 Lung Caner 05/22/2017 LNGPR Interpretation TNP () 10 Targeted Gene Panel Laboratory test 05/22/2017 Cytology Non-Generalist SEE RESULT BELOW 11 finding Laboratory test 05/22/2017 Hepatitis C Ab - Self Nonreactive Nonreactive finding Ref 1 Because ethnic data is not always readily available, this report includes an eGFR for both -Americans and non- Americans. The National Kidney Disease Education Program (NKDEP) does not endorse the use of the MDRD equation for patients that are not between the ages of 18 and 70, are , have extremes of body size, muscle mass, or nutritional status, or are non- or non-. According to the National Kidney Foundation, irrespective of diagnosis, the stage of the disease is based on the level of kidney function: Stage Description GFR(mL/min/1.73 m(2)) 1 Kidney damage with normal or decreased GFR 90 2 Kidney damage with mild decrease in GFR 60-89 3 Moderate decrease in GFR 30-59 4 Severe decrease in GFR 15-29 5 Kidney failure <15 (or dialysis) 2 Desirable: <150 Borderline High: 150-199 High: 200-499 Very High: >500 3 Desirable: <200 Borderline High: 200-239 High: >239 4 Low: <40 Desirable: 40-60 High: >60 5 Desirable: <100 Near Optimal: 100-129 Borderline High: 130-159 High: 160-189 Very High: >189 6 Because ethnic data is not always readily available, this report includes an eGFR for both -Americans and non- Americans. The National Kidney Disease Education Program (NKDEP) does not endorse the use of the MDRD equation for patients that are not between the ages of 18 and 70, are , have extremes of body size, muscle mass, or nutritional status, or are non- or non-. According to the National Kidney Foundation, irrespective of diagnosis, the stage of the disease is based on the level of kidney function: Stage Description GFR(mL/min/1.73 m(2)) 1 Kidney damage with normal or decreased GFR 90 2 Kidney damage with mild decrease in GFR 60-89 3 Moderate decrease in GFR 30-59 4 Severe decrease in GFR 15-29 5 Kidney failure <15 (or dialysis) 7 Athletic Equipment Custodian: [id number] SEE RESULT BELOW Name: MARGARITA HASKINS Dannielle : [address]: Mercy Arce MD Acct: [id number] Unit: [id number] AGE: 71 Location: OR Re05/22/17 SEX: F Status: DEP SDC SPEC: [id number] AMINAH: 05/22/17-[address]: Mercy Arce MD REQ: [id number] RECD: 05/22/17 STATUS: SOUT _ ORDERED: FNA-IMG GUID BX/2, CY ADEQ-ADDL P, LEVEL 4/2, CYTO ADEQ-1ST P/2, IMMUNO- IMMUNO-ADDL/6, IMMUNO-QUANT Lung cancer targeted panel has been performed at [facility], [place], [place]. The testing reveals: Test Result Flag Unit RefValue Lung Panel with Rearrangement Tumor Interpretation TNP Lung Panel with Rearrangement Tumor was cancelled on05/28/2017 at 09:39; There was an insufficient amount of tumor tissue for analysis. Please send additional formalin fixed material or stained cytology slides if testing is still desired. Refer to [email or web address] (Chandler test ID [email or web address]) or call for more information about specimen requirements for this test. Test Performed by: [facility] - [address] [address] Addendum Signed (signature on file) Kaleb Reece MD 1418 Addendum: The following immunochemical stains are performed with appropriate controls on formalin fixed cell block material CK5/6 negative CK7 positive CK20 negative Napsin A positive P63 negative TTF-1 positive PDL 1 negative (0% tumor, 0% lymphocytes) ALK negative CONTINUED ON NEXT PAGE DEPARTMENT OF PATHOLOGY, [address] [place] [address] Kaleb Reece M.D. Director [facility] # [id number] RUN DATE: 06/10/17 [facility] LAB LIVE PAGE 2 Patient: MARGARITA HASKINS [id number] (Continued) ADDENDUM (Continued) These findings support a diagnosis of metastatic primary pulmonary adenocarcinoma. Next degeneration sequencing analysis is pending and will be reported in an addendum. Addendum Signed (signature on file) Kaleb Reece MD 1342 FINAL DIAGNOSIS 1) Lymph node R-4, endobronchial Ultrasound guided, fine needle aspiration: -- Malignant- adenocarcinoma. 2) Lymph node, station-7, endobronchial Ultrasound guided, fine needle aspiration: -- Malignant- adenocarcinoma. COMMENT: Cell blocks were prepared in the evaluation of this specimen. The cell blocks show very little tumor. Air dried slides are being sent for next generation sequencing and the results will be reported in an addendum. An additional cell block is being attempted from scraped slides for immunohistochemistry. #1. LYMPH NODE - US GUIDED ENDOBRONCHIAL R-4 FINE NEEDLE ASPIRATION, #2. LYMPH NODE - US GUIDED ENDOBRONCHIAL ST-7 FINE NEEDLE ASPIRATION CONTINUED ON NEXT PAGE DEPARTMENT OF PATHOLOGY, [address] [place] [address] Kaleb Reece M.D. Director [facility] # [id number] RUN DATE: 06/10/17 [facility] LAB LIVE PAGE 3 Patient: MARGARITA HASKINS [id number] (Continued) CLINICAL HISTORY (Continued) CLINICAL HISTORY Enlarged lymph nodes IMMEDIATE INTERPRETATION 1) All passes adequate 2) Pass 1-inadequate, pass 2, and 3-adequate GROSS DESCRIPTION #1) US guided endobronchial fine needle aspiration x 5 pass(es) with 1 alcohol fixed slides,10 Air dried slide(s) and needle rinse in formalin for cell blocks CN- 339-1A, and CN-339-1B. 3 slides scraped for cell block CN-339-1C. #2) US guided endobronchial fine needle aspiration x 3 pass(es) with 4 alcohol fixed slides, 2 Air dried slide(s) and needle rinse in formalin for cell block.CN-339-2 Signed (signature on file) Char Pappas MD 1222 END OF REPORT DEPARTMENT OF PATHOLOGY, [address] [place] [address] Kaleb Reece M.D. Director [facility] # [id number] Test Result Flag Unit RefValue Lung Panel with Rearrangement Tumor Interpretation TNP Lung Panel with Rearrangement Tumor was cancelled on 05/28/2017 at 09:39; There was an insufficient amount of tumor tissue for analysis. Please send additional formalin fixed material or stained cytology slides if testing is still desired. Refer to [email or web address] (Chandler test ID [email or web address]) or call for more information about specimen requirements for this test. Test Performed by: [address] [address] 10 Lung Panel with Rearrangement Tumor was cancelled on 06/17/2017 at 09:33; There was an insufficient amount of tumor tissue for analysis. If testing is still desired, please submit a new sample for analysis. Test Performed by: [address] [address] 11 SEE RESULT BELOW Name: MARGARITA HASKINS : [address]: Mercy Arce MD Acct: [id number] Unit: [id number] AGE: 71 Location: OR Re05/22/17 SEX: F Status: MARK PAULINO SPEC: [id number] AMINAH: 05/22/17-0 [facility] DR: Mercy Arce MD REQ: [id number] RECD: 05/22/17-3291 STATUS: SOUT _ ORDERED: FNA-IMG GUID BX/2, CY ADEQ-ADDL P, LEVEL 4/2, CYTO ADEQ-1ST P/2, IMMUNO- IMMUNO-ADDL/6, IMMUNO-QUANT Lung gene panel has been performed at [place], [place]. The testing reveals: Lung Panel with Rearrangement Tumor was cancelled on 06/17/2017 at 09:33; There was an insufficient amount of tumor tissue for analysis. If testing is still desired, please submit a new sample for analysis. Test Performed by: [address] [address] Addendum Signed (signature on file) Char Pappas MD 1221 Lung cancer targeted panel has been performed at [place], [place]. The testing reveals: Test Result Flag Unit RefValue Lung Panel with Rearrangement Tumor Interpretation TNP Lung Panel with Rearrangement Tumor was cancelled on05/28/2017 at 09:39; There was an insufficient amount of tumor tissue for analysis. Please send additional formalin fixed material or stained cytology slides if testing is still desired. Refer to [email or web address] (Chandler test ID [email or web address]) or call for more information about specimen requirements for this test. Test Performed by: [address] [address] CONTINUED ON NEXT PAGE DEPARTMENT OF PATHOLOGY, [address] [place] [address] Kaleb Reece M.D. Director [facility] # [id number] RUN DATE: 06/18/17 [facility] LAB LIVE PAGE 2 Patient: MARGARITA HASKINS [id number] (Continued) ADDENDUM (Continued) Addendum Signed (signature on file) Kaleb Reece MD 1418 Addendum: The following immunochemical stains are performed with appropriate controls on formalin fixed cell block material CK5/6 negative CK7 positive CK20 negative Napsin A positive P63 negative TTF-1 positive PDL 1 negative (0% tumor, 0% lymphocytes) ALK negative These findings support a diagnosis of metastatic primary pulmonary adenocarcinoma. Next degeneration sequencing analysis is pending and will be reported in an addendum. Addendum Signed (signature on file) Kaleb Reece MD 1342 FINAL DIAGNOSIS 1) Lymph node R-4, endobronchial Ultrasound guided, fine needle aspiration: -- Malignant- adenocarcinoma. 2) Lymph node, station-7, endobronchial Ultrasound guided, fine needle aspiration: -- Malignant- adenocarcinoma. CONTINUED ON NEXT PAGE DEPARTMENT OF PATHOLOGY, [address] [place] [address] Kaleb Reece M.D. Director [facility] # [id number] RUN DATE: 06/18/17 [facility] LAB LIVE PAGE 3 Patient: MARGARITA HASKINS [id number] (Continued) FINAL DIAGNOSIS (Continued) COMMENT: Cell blocks were prepared in the evaluation of this specimen. The cell blocks show very little tumor. Air dried slides are being sent for next generation sequencing and the results will be reported in an addendum. An additional cell block is being attempted from scraped slides for immunohistochemistry. #1. LYMPH NODE - US GUIDED ENDOBRONCHIAL R-4 FINE NEEDLE ASPIRATION, #2. LYMPH NODE - US GUIDED ENDOBRONCHIAL ST-7 FINE NEEDLE ASPIRATION CLINICAL HISTORY Enlarged lymph nodes IMMEDIATE INTERPRETATION 1) All passes adequate 2) Pass 1-inadequate, pass 2, and 3-adequate GROSS DESCRIPTION #1) US guided endobronchial fine needle aspiration x 5 pass(es) with 1 alcohol fixed slides,10 Air dried slide(s) and needle rinse in formalin for cell blocks CN- 339-1A, and CN-339-1B. 3 slides scraped for cell block CN-339-1C. #2) US guided endobronchial fine needle aspiration x 3 pass(es) with 4 alcohol fixed slides, 2 Air dried slide(s) and needle rinse in formalin for cell block.CN-339-2 Signed (signature on file) Char Pappas MD 1222 END OF REPORT DEPARTMENT OF PATHOLOGY, [address] [place] [address] Kaleb Reece M.D. Director [facility] # [id number] Procedures Date CPT Code Description Status 11/01/2017 08293 EKG Tracing & Interpretation Completed 08/12/2017 69430 EKG, Interpretation Only Completed 08/09/2017 69532 EKG, Interpretation Only Completed 08/09/2017 76070 ECHO Transthorasic Realtime 2D W Doppler & Color Flow Completed Hosp 08/08/2017 46722 EKG, Interpretation Only Completed 07/02/2017 25218 Fluoroscopic Guidance For Cent Completed 07/02/2017 63898 Ultrasound Guidance For Vascular Access Completed 07/02/2017 38515 Insertion Tunneled Cent Venous Cathr W Subcut Port 5 Completed Yrs Or Oldr 05/22/2017 79345 EKG, Interpretation Only Completed 05/22/2017 48836 With Endobronchial Ultrasound Guided Completed 04/15/2017 03457 Diffusing Capacity Completed 04/15/2017 32526 Plethysmography Determination Lung Volumes & Per Airway Completed Resist 04/15/2017 59843 [facility] Measurement Heart Rate, Completed Oximetry 04/15/2017 13089 Pulmonary Function><Bronchodil Completed Encounters Type Date Location Provider CPT E/M Dx Office Visit 11/08/2017 [facility] De La Cruz M.D. 26990 Z01.810 8:00a [facility] I48.0 I10 Office Visit 11/01/2017 9:40a [facility] Maricarmen De La Cruz M.D. [address] [facility] Z01.810 J44.9 D37.4 C34.90 R07.9 Office Visit 09/09/2017 10:15a [facility] [place], [address] [facility] FACS Office Visit 07/01/2017 9:00a [facility] [place], [address] [facility] Office Visit 06/01/2017 12:45p [facility] [place] [address] [facility] J44.9 D37.4 Office Visit 04/22/2017 1:00p [facility] [place], [address] [facility] J44.9 R09.02 Z12.2 R91.8 Office Visit 03/21/2017 10:00a [facility] [place] [address] [facility] Z12.2 Plan of Care Future Appointment(s):11/12/2017 7:30 am - Margarito Nicole MD, FACS at [facility]11/12/2017 7:30 am - Kris Mclaughlin MD at [facility]12/02/2017 10:30 am - Mercy Arce MD at [facility]11/08/2017 - Maricarmen De La Cruz M.D.Z01.810 Encounter for preprocedural cardiovascular examinationComments:Your stress test is very reassuring, normal flow of the blood through the heart and normal heart strength (EF 74%).You can have the surgery w/o additional cardiac testing.I48.0 Paroxysmal atrial fibrillationComments:I recommend staying on the metoprolol to prevent further atrial fibrillation.Atrial fibrilliation iscontrolled not cured.Future options could include stronger medication to help keep you in the normalrhythm now vs. wait until it comes back.A fib puts you at increased risk for stroke if in the rhythmmore than a day or two. Anti arryhythmic options include coumodin or "NOAC's" such as Xarelto, Pradaxa and Eliqus. Current plan would be to resume Xarelto after surgery when the surgeons feel it is safe..Follow up:Approx. 3 month OV or FINANCIAL REPORTING ACCOUNTANT.Recommendations:Avoid alcohol. Check before taking over the counter medications.I10 Essential (primary) hypertension
--- OUTSIDE RECORDS SUMMARY | 2017-11-12 06:00 | XMS REPORT ---
:1945 External Reference #:[id number] Author Organization [employer] Address [address] [place] [address] Phone [phone] Care Team Providers Name Role Phone Paola Colorado NP Primary Care Physician Unavailable Payers Type Date Identification Numbers Payment Provider Subscriber Medicare Primary Policy Number: [id number] Medicare Margarita Haskins PayID: [id number] [facility] [address] [place] [address] Problems Date Description Provider Status Onset: 11/01/2017 [...] Sister Lives With Brother in law Occupation Change Advisor/Automobile Service Station Manager Cigarette Use Former Cigarette Smoker Smoked 1 [...] 7pm B. on the day [place], before TALENT PROGRAM MANAGER surgery and 2 tabs at 7am on the day of surgery Metronidazole 10/01 Active Tablets 500mg 3tabs 1 tablet by Irene /2018 mouth at 1pm B. and 7pm on [place], the day TALENT PROGRAM MANAGER before surgery and 1 tablet at 6 am the morning of surgery Colyte With 10/01 Active Solution 240gm 4000m take as Irene Flavor Packs /2018 Rec l directed on B. the day [place], before TALENT PROGRAM MANAGER surgery Breo Ellipta 04/22 Active Aerosol 200-25mcg [...] Aerosphere /2018 Act s twice daily MD Yzamin - 04/22 Spiriva Hx Aerosol 2.5mcg/Ac 1 puff every Unknown Respimat /0000 t day - 04/21 Co Q10 Hx Capsules 400mcg by mouth a Unknown /0000 day - 10/31 Carafate Hx Suspension 1GM/10ML give 10ml by Unknown /0000 mouth four times a day as needed Vital Signs Date Vital Result Comment 11/05/2017 Heart Rate 90 /min BP Systolic [...] Test Date Test Result H/L Range Note Lipid Profile (Trig/Chol/HDL) 11/01/2017 Triglycerides 70 mg/dL 1 Cholesterol 186 mg/dL 2 HDL Cholesterol 66.9 mg/dL 3 LDL Cholesterol 105 mg/dL 4 CBC Auto Diff 10/01/2017 White Blood Count [...] 0-2 Nucleated Red Blood Cells % 0.3 Comp Metabolic Panel 10/01/2017 Sodium 137 mmol/L [...] Egfr Non- 106.7 >60 Egfr 129.1 >60 5 Laboratory test 05/31/2017 Point of Care 114 mg/dL High 70-100 6 finding Glucose Laboratory test 05/22/2017 Cytology Non-Lab Engineer SEE RESULT BELOW 7 finding Miscellaneous Test See Comment 8 Lung Caner 05/22/2017 LNGPR Interpretation TNP () 9 Targeted Gene Panel Laboratory test 05/22/2017 Cytology Non-Lab Engineer SEE RESULT BELOW 10 finding Laboratory test 05/22/2017 Hepatitis C Ab - Self Nonreactive Nonreactive finding Ref 1 Desirable: <150 Borderline High: 150-199 High: 200-499 Very High: >500 2 Desirable: <200 Borderline High: 200-239 High: >239 3 Low: <40 Desirable: 40-60 High: >60 4 Desirable: <100 Near Optimal: 100-129 Borderline High: 130-159 High: 160-189 Very High: >189 5 Because ethnic data is not always readily [...] 15-29 5 Kidney failure <15 (or dialysis) 6 Hand Straightener: [id number] 7 SEE RESULT BELOW Name: MARGARITA HASKINS : [address]: Mercy Arce MD Acct: [id number] Unit: [id number] AGE: 71 Location: OR Re05/22/17 SEX: F Status: DEP SDC SPEC: [id number] AMINAH: 05/22/[address]: Mercy Arce MD REQ: [id number] RECD: 05/22/17 STATUS: SOUT _ ORDERED: FNA-IMG GUID BX/2, CY ADEQ-ADDL P, LEVEL 4/2, CYTO ADEQ-1ST P/2, IMMUNO- IMMUNO-ADDL/6, IMMUNO-QUANT Lung cancer targeted panel has been performed at [place], [place]. The testing reveals: Test Result Flag Unit RefValue Lung Panel with Rearrangement Tumor Interpretation TNP Lung Panel with Rearrangement Tumor was cancelled on05/28/2017 at 09:39; There was an insufficient amount of tumor tissue for analysis. Please send additional formalin fixed material or stained cytology slides if testing is still desired. Refer to [employer] ([place] test ID [email or web address]) or call for more information about specimen requirements for this test. Test Performed by: [facility] - [address] [address] Addendum Signed (signature on file) Kaleb Reece MD 1418 Addendum: The following immunochemical stains are performed with appropriate controls on formalin fixed cell block material CK5/6 negative CK7 positive CK20 negative Napsin A positive P63 negative TTF-1 positive PDL 1 negative (0% tumor, 0% lymphocytes) ALK negative CONTINUED ON NEXT PAGE DEPARTMENT OF PATHOLOGY, [address] [place] [address] Kaleb Reece M.D. Director [place] # [id number] RUN DATE: 06/10/17 [facility] LAB LIVE PAGE 2 Patient: MARGARITA HASKINS [id number] (Continued) ADDENDUM (Continued) These findings support a [...] CONTINUED ON NEXT PAGE DEPARTMENT OF PATHOLOGY, [address] [place] [address] Kaleb Reece M.D. Director [facility] # [id number] RUN DATE: 06/10/17 [facility] LAB LIVE PAGE 3 Patient: MARGARITA HASKINS Dannielle [id number] (Continued) CLINICAL HISTORY (Continued) CLINICAL HISTORY Enlarged [...] 1222 END OF REPORT DEPARTMENT OF PATHOLOGY, [address] [place] [address] Kaleb Reece M.D. Director [facility] # [id number] Test Result Flag Unit RefValue Lung Panel with Rearrangement Tumor Interpretation TNP Lung Panel with Rearrangement Tumor was cancelled on 05/28/2017 at 09:39; There was an insufficient amount of tumor tissue for analysis. Please send additional formalin fixed material or stained cytology slides if testing is still desired. Refer to [employer] ([place] test ID [id number]) or call for more information about specimen requirements for this test. Test Performed by: [facility] [address] [place] [address] 9 Lung Panel with Rearrangement Tumor was cancelled on 06/17/2017 at 09:33; There was an insufficient amount of tumor tissue for analysis. If testing is still desired, please submit a new sample for analysis. Test Performed by: [address] [address] 10 SEE RESULT BELOW Name: ELIDIA HASKINSJONATHAN Spicer : [address]: Mercy Arce MD Acct: [id number] Unit: [id number] AGE: 71 Location: OR Re05/22/17 SEX: F Status: [facility] SPEC: [id number] AMINAH: 05/22/170 [facility] DR: Mercy Arce MD REQ: [id number] RECD: 05/22/17749 STATUS: SOUT _ ORDERED: FNA-IMG GUID BX/2, CY ADEQ-ADDL P, LEVEL 4/2, CYTO ADEQ-1ST P/2, IMMUNO- IMMUNO-ADDL/6, IMMUNO-QUANT Lung gene panel has been performed at [place], [place]. The testing reveals: Lung Panel with Rearrangement Tumor was cancelled on 06/17/2017 at 09:33; There was an insufficient amount of tumor tissue for analysis. If testing is still desired, please submit a new sample for analysis. Test Performed by: [place] [address] [place] [address] Addendum Signed (signature on file) Char Pappas MD 1221 Lung cancer targeted panel has been performed at [facility], [place], [place]. The testing reveals: Test Result Flag Unit RefValue Lung Panel with Rearrangement Tumor Interpretation TNP Lung Panel with Rearrangement Tumor was cancelled on05/28/2017 at 09:39; There was an insufficient amount of tumor tissue for analysis. Please send additional formalin fixed material or stained cytology slides if testing is still desired. Refer to [employer] ([place] test ID [id number]) or call for more information about specimen requirements for this test. Test Performed by: [facility] [address] [place] [address] CONTINUED ON NEXT PAGE DEPARTMENT OF PATHOLOGY, [address] [place] [address] Kaleb Reece M.D. Director [facility] # [id number] RUN DATE: 06/18/17 [facility] LAB LIVE PAGE 2 Patient: MARGARITA HASKINS [id number] (Continued) ADDENDUM (Continued) Addendum Signed (signature on [...] in an addendum. Addendum Signed (signature on file)Robinson Reece MD 1342 FINAL DIAGNOSIS 1) Lymph node R-4, endobronchial Ultrasound guided, fine needle aspiration: -- Malignant- adenocarcinoma. 2) Lymph node, station-7, endobronchial Ultrasound guided, fine needle aspiration: -- Malignant- adenocarcinoma. CONTINUED ON NEXT PAGE DEPARTMENT OF PATHOLOGY, [address] [place] [address] Kaleb Reece M.D. Director [facility] # [id number] RUN DATE: 06/18/17 [facility] LAB LIVE PAGE 3 Patient: MARGARITA HASKINS [id number] (Continued) FINAL DIAGNOSIS (Continued) COMMENT: Cell blocks [...] 1222 END OF REPORT DEPARTMENT OF PATHOLOGY, [address] [place] [address] Kaleb Reece M.D. Director [facility] # [id number] Procedures Date CPT Code Description Status 11/01/2017 47035 EKG Tracing & Interpretation Completed 08/12/2017 08300 EKG, Interpretation Only Completed 08/09/2017 15483 EKG, Interpretation Only Completed 08/09/2017 09104 ECHO Transthorasic Realtime 2D W Doppler & Color Flow Completed Hosp 08/08/2017 36200 EKG, Interpretation Only Completed 07/02/2017 15184 Fluoroscopic Guidance For Cent Completed 07/02/2017 89889 Ultrasound Guidance For Vascular Access Completed 07/02/2017 90951 Insertion Tunneled Cent Venous Cathr W Subcut Port 5 Completed Yrs Or Oldr 05/22/2017 40127 EKG, Interpretation Only Completed 05/22/2017 65948 With Endobronchial Ultrasound Guided Completed 04/15/2017 23473 Diffusing Capacity Completed 04/15/2017 01063 Plethysmography Determination Lung Volumes & Per Airway Completed Resist 04/15/2017 65133 [facility] Measurement Heart Rate, Completed Oximetry 04/15/2017 42815 Pulmonary Function><Bronchodil Completed Encounters Type Date Location Provider CPT E/M Dx Office Visit 09/09/2017 [facility] [place], [address] K63.5 10:15a Materials Management Supervisor FACS Office Visit 07/01/2017 [facility] [place], [address] C34.31 9:00a [facility] Office Visit 06/01/2017 [facility] [place] [address] C34.90 12:45p [facility] J44.9 D37.4 Office Visit 04/22/2017 1:00p [facility] [place] S[place]ann [place], [address] Z87.891 [facility] J44.9 R09.02 Z12.2 R91.8 Office Visit 03/21/2017 10:00a [facility] [place] [address] J44.9 [facility] Z12.2 Plan of Care Future Appointment(s):11/08/2017 8:00 am - Maricarmen De La Cruz M.D. at [facility] AT [facility]11/07/2017 11:30 am - Maricarmen De La Cruz M.D. at [facility] AT [facility]11/12/2017 7:30 am - Margarito Nicole MD, FACS at [facility]11/12/2017 7:30 am - Kris Mclaughlin MD at [facility]12/02/2017 10:30 am - Mercy Arce MD at [facility]
[2017-11-12] MEDS ORDERED: Heparin VIAL(*) 5000 UNITS/ML VIAL (FIVE THOUSAND) ONE (06:14)
[2017-11-12] MEDS ORDERED: Bupivacaine 0.25% SDV PF* 10 ML VIAL INJ ONE (07:00)
[2017-11-12] MEDS ORDERED: Midazolam* 1 MG/ML 2 ML VIAL (2 MG) ONE ×2 (07:11)
[2017-11-12] MEDS ORDERED: fentaNYL* 50 MCG/ML 2 ML VIAL (100 MCG VIAL) ONE ×2 (07:11→09:13)
[2017-11-12] MEDS ORDERED: Propofol* 10 MG/ML 20 ML BTL IV PUSH ONE (07:40)
[2017-11-12] MEDS ORDERED: Dexamethasone IV* 4 MG/ML 1 ML (4 MG) ONE (07:40)
[2017-11-12] MEDS ORDERED: Succinylcholine* 20 MG/ML 10 ML VIAL ONE (07:40)
[2017-11-12] MEDS ORDERED: Famotidine IV* 10 MG/ML 2 ML (20 mg) ONE (07:40)
[2017-11-12] MEDS ORDERED: Cisatracurium* 2 MG/ML MDV 5 ML ONE (07:40)
[2017-11-12] MEDS ORDERED: Phenylephrine INJ* 10 MG/ML 1 ML VIAL (10 MG) ONE (08:02)
[2017-11-12] MEDS ORDERED: PROCHLORPERAZINE INJ 5 MG/ML 2 ML VIAL IV PRN (08:53)
[2017-11-12] MEDS ORDERED: DiMENhydriNATE IV* 50 MG/ML VIAL IV PUSH PRN (08:53)
[2017-11-12] MEDS ORDERED: diPHENhydraMINE IV* 50 MG/ML 1 ml VIAL (BENADRYL) IV PRN (08:53)
[2017-11-12] MEDS ORDERED: Levalbuterol 0.63MG/3ML NEB* UNIT OF USE INH PRN (08:53)
[2017-11-12] MEDS ORDERED: fentaNYL* 50 MCG/ML 2 ML VIAL (100 MCG VIAL) IV PRN (08:53)
[2017-11-12] MEDS ORDERED: Acetaminophen IV 1GM/100ML * 1,000 MG/100 ML VIAL IVPB ONE (08:53)
[2017-11-12] MEDS ORDERED: Nalbuphine* 10 MG/ML 1 ML VIAL IV PRN (08:53)
[2017-11-12] MEDS ORDERED: Naloxone* 0.4 MG/ML 1 ML VIAL IV PRN (08:53)
[2017-11-12] MEDS ORDERED: Ondansetron INJ* 2 MG/ML VIAL IV PRN (08:53)
[2017-11-12] MEDS ORDERED: Lidocaine 2% PF * 5 ML VIAL ONE (09:13)
--- NOTE | 2017-11-12 09:39 | OP ---
Operative Report - Blank - Operative Report Date of Operation: 11/12/17 Note: Brief Operative Note Preop Dx: colon polyp Postop Dx: same Procedure: Laparoscopy; colonoscopy by Dr. Mclaughlin w/ polypectomy Anesthesia: GET Surgeon: Harmony Mclaughlin Tank Cooper: DALY Colon Fluids: 1000 ml RL EBL: none Specimen: polyp at 30 cm Drains: none Findings: dictated
[2017-11-12] MEDS ORDERED: Albuterol HFA INHALER* 8 gm MDI INH PRN (09:42)
--- NOTE | 2017-11-12 09:51 | BRIEFOPN ---
Brief Operative Note - Surgery Procedures: Procedures OPERATIVE REPORT PRE-OP: Sigmoid colon polyp POST-OP: Same, 4-5 cm pedunculated sigmoid colon polyp PROCEDURE:Flexible sigmoidoscopy with hot snare polypectomy of polyp at 30 cms. (Performed with simulataneous diagnostic laparoscopy with Dr. Nicole, see separate note) SURGEON: MD Arnoldo ANESTHESIA: General Dr. Frost ASST:none IVF:min EBL:min SPECIMEN:Polyp at 30 cms DRAIN: none WOUND CLASS:N/A COMPLICATIONS: none TO PACU
[2017-11-12] MEDS ORDERED: Ondansetron INJ* 2 MG/ML VIAL ONE (09:57)
[2017-11-12] MEDS ORDERED: Acetaminophen IV 1GM/100ML * 100 ML ONE (10:36)
[2017-11-12] MEDS ORDERED: TIOTROPIUM RESPIMT 2.5 MCG INH SCH (18:00)
[2017-11-12] MEDS ORDERED: MDI INH SCH (18:00)
[2017-11-12] MEDS: Acetaminophen TAB* 325 MG PO PRN (19:33)
[2017-11-12] MEDS: Magnesium Oxide TAB* 400 MG PO SCH (19:34)
[2017-11-13] MEDS: Acetaminophen TAB* 325 MG PO PRN (00:59)
--- NOTE | 2017-11-13 02:05 | OP ---
CC: Dr. Sampson Rios; Dr. Mercy Arce; Dr. Maricarmen De La Cruz; [facility]; Dr. Omar Rosado * DATE OF OPERATION: 11/12/17 - ROOM #339 DATE OF : 45 SURGEON: Margarito Nicole MD. CO-SURGEON: Dr. Mclaughlin. BULK DELIVERY DRIVER: ADLY Casillas ANESTHESIOLOGIST: Dr. Frost. ANESTHESIA: General endotracheal. PRE-OP DIAGNOSIS: Sigmoid colon polyp. POST-OP DIAGNOSIS: Sigmoid colon polyp. OPERATIVE PROCEDURE: Laparoscopic mobilization of sigmoid colon and intraoperative colonoscopic polypectomy. ESTIMATED BLOOD LOSS: Minimal. IV FLUIDS: Crystalloid. SPECIMEN: Sigmoid colon polyp. DRAINS: None. COMPLICATIONS: None. COUNTS: The instrument, needle, and sponge counts were correct. DESCRIPTION OF PROCEDURE: The patient was brought to the operating room and placed on the table supine. Sequential compression devices were placed in both lower extremities. General anesthesia was administered and a Dias catheter was placed. She was positioned and padded appropriately. She was prepped and draped in the usual sterile fashion and a time-out was performed. Local anesthetic was infiltrated into the skin and soft tissue prior to making each incision. A transumbilical incision was created using an open technique and a 5 mm optical trocar was placed. Carbon dioxide was insufflated to a pressure of 15 mmHg. Under direct visualization, additional 5 mm trocars were placed in the suprapubic midline and in the right lower quadrant. The sigmoid colon was noted to be adherent to the left adnexa and LigaSure was used to divide adhesions there and then the sigmoid colon was mobilized along the white line of Toldt in order to be able to straighten the sigmoid colon and thereby identify the area of tattooing, which was approximately 30 cm proximal to the anal verge. After completing mobilization of the sigmoid colon, it was clamped distally in the area of the descending colon with an atraumatic grasper. At this time, Dr. Mclaughlin proceeded with the colonoscopic polypectomy. Please refer to his note for the full details. After the conclusion of the polypectomy, the inspection revealed no evidence of any external colonic injuries. The carbon dioxide was released and the ports removed under direct visualization. The incisions were closed with 4-0 Monocryl to approximate the skin and Steri-Strips were applied. The patient tolerated the procedure well, was subsequently extubated, transferred to Recovery in a stable condition. [id number]/[facility] #: [id number] MTDRachel
--- NOTE | 2017-11-13 03:22 | OP ---
DATE OF OPERATION: 11/12/17 - ROOM #339 DATE OF : 45 SURGEON: Kris Mclaughlin MD SHIP/REC/DOC CONTROL: None. ANESTHESIOLOGIST: Dr. Frost. ANESTHESIA: General. PRE-OP DIAGNOSIS: Polyp at 30 cm. POST-OP DIAGNOSIS: A 4 to 5 cm pedunculated polyp at 30 cm. OPERATIVE PROCEDURE: Flexible sigmoidoscopy to 40 cm with hot snare polypectomy removal of polyp at 30 cm (procedure performed with simultaneous diagnostic laparoscopy with Dr. Nicole - please see separate dictated note). ESTIMATED BLOOD LOSS: Minimal. WOUND CLASSIFICATION: Not applicable. SPECIMENS: Sigmoid colon polyp. COMPLICATIONS: None. BRIEF HISTORY: Ms. Antoinette Riggs is 71-year-old woman with presumed metastatic lung cancer, noted to have a large polyp at 30 cm at a recent colonoscopy. Biopsy showed this to be a tubular adenoma without dysplasia or malignancy. She is being taken to the operating room for a combined laparoscopic/ colonoscopic removal procedure. The patient had been seen in the office and the risk of colonoscopy/flexible sigmoidoscopy were explained including the risk of bleeding, infection, perforation, intra-abdominal abscess formation, and discomfort were all explained. DESCRIPTION OF PROCEDURE: Written informed consent was obtained. The patient was taken to the endoscopy suite and placed in the supine position with the leg spread. The abdomen was prepped and Dr. Nicole proceeded with a diagnostic laparoscopy to mobilize the sigmoid colon and identify the previously placed tattoo in the sigmoid colon at the location of the polyp. When this was complete, I performed a digital rectal exam, which showed slightly decreased tone, but no evidence of mass. The preparation appeared to be excellent. The Olympus adult video endoscope was then inserted in the anal canal and under direct vision, the scope was advanced to about 30 cm where the colon had been clamped with the laparoscopic instrument. The endoscope was withdrawn and at about 30 cm, we identified the large polyp, which appeared to be pedunculated. The tattoo area was noticed. In conjunction with Dr. Nicole, we were able to identify the polyp externally. On examining the polyp, I was able to place a large hexagonal snare around the base of the polyp and this appeared to be of reasonable size and thickness and after confirming with Dr. Nicole, it appeared that this polyp was mostly what appeared to be on the mesenteric border of the colon. The polyp was then removed with the hot snare technique closing the snare slowly as we divided and removed the polyp. The polyp was then grasped with the snare and brought out through the anus and sent for pathology. I then went back and inserted the scope back up to the polypectomy site. Hemostasis was excellent. The defect was closed with three separate 2.8 mm resolution clips to close the mucosal deficit. Externally with the laparoscope, there appeared to be no evidence of perforation or subcutaneous air within the mesentery or serosa/pneumatosis of the sigmoid colon in the area of the polypectomy. Once this was complete, the endoscope was withdrawn. The patient tolerated the procedure well. [id number]/[facility] #: [id number] MTDD
[2017-11-13 08:24] VITALS: BP 137/73
[2017-11-13] MEDS: Magnesium Oxide TAB* 400 MG PO SCH (08:33)
[2017-11-13] MEDS ORDERED: PTO:Fluticasone/Vilanterol MDI(NF) 200/25 MDI INH SCH (09:00)
[2017-11-13] MEDS ORDERED: Metoprolol Succinate XL TAB* 25 MG PO SCH (09:00)
--- NOTE | 2017-11-13 22:41 | DS ---
CC: Dr. Omar Rosado; [facility]; Dr. Rios; Dr. Arce. * DISCHARGE SUMMARY: DATE OF ADMISSION: 11/12/17 DATE OF DISCHARGE: 11/13/17 ATTENDING SURGEONS: Margarito Nicole MD and Kris Mclaughlin MD ATTENDING PROVIDER: Margarito Nicole MD * (DICTATED BY DALY LIAO) HOSPITAL COURSE: Please refer to admission history and physical and operative note for details. Briefly, the patient was taken to the operating room on 11/12 and underwent a laparoscopic assisted colonoscopic polypectomy for a sigmoid colon polyp that was too large to be removed at the time of her original colonoscopy. The patient tolerated the procedure well. Pathology is pending. She had an otherwise uneventful night except for passage of some loose stool, no blood. Vital signs on the morning of surgery temperature 97.4, blood pressure 138/75, pulse 79, respiration 17. The patient was seen and examined by Dr. Nicole and Dr. Mclaughlin. Laparoscopic sites are healing well. Abdomen: Soft, with minimal incisional tenderness only. The patient will resume all of her usual medications with the exception of Xarelto, which she will resume beginning on . She will call our office to set up a followup with Dr. Nicole. She will also need to be in contact with Dr. Rosado's office for possible repeat colonoscopy in 3 to 6 months. DALY LIAO [id number]/[facility] #: [id number] [facility] MED[facility] CENTERRachel
== END 2017-11-13 09:47 | disposition home or self-care (01) ==
LOC: AA 11-12 05:55 → INTOOBSV 11-12 05:55 → SSU 11-12 09:39
PROVIDERS: ADMIT Surgery; ATTEND Surgery
PROC: 0DBN8ZX Excision of Sigmoid Colon, Via Natural or Artificial Opening Endoscopic, Diagnostic (ICD-10-PCS; principal; 2017-11-12 07:30)
DX: D12.5 Benign neoplasm of sigmoid colon (principal); J44.9 Chronic obstructive pulmonary disease, unspecified; I48.91 Unspecified atrial fibrillation; Z79.01 Long term (current) use of anticoagulants; Z79.899 Other long term (current) drug therapy; Z85.118 Personal history of other malignant neoplasm of bronchus and lung; Z87.891 Personal history of nicotine dependence; Z88.8 Allergy status to other drugs, medicaments and biological substances; Z23 Encounter for immunization
CPT/HCPCS: 88305; 90471; 90686; A9270-GY; G0008; G0378; J0330; J1100; J1335; J1644; J2250; J2405; J2704; J3010; J3490

== ENCOUNTER 2020-06-21 10:46 | Inpatient (IN) ==
[2020-06-21] MEDS ORDERED: NS 0.9% 1000 ml BAG 1,000 ML IV ONE (11:06)
[2020-06-21 11:30] LABS: ABS Lymphocytes 1.7 10^3/ul (1.0-4.8); ABS Monocytes 1.3 10^3/ul (0-0.8); Eosinophil % 0.1 %; Hematocrit 36 % (35-47); Hemoglobin 11.6 g/dL (12.0-16.0); Lymphocyte % 13.3 %; Mean Corpuscular HGB Conc 32 g/dL (31-36); Mean Corpuscular Hemoglobin 29 pg (27-31); Mean Corpuscular Volume 88 fL (80-97); Mean Platelet Volume 8.1 fL (7.4-10.4); Platelet Count 366 10^3/uL (150-450); Red Blood Count 4.07 10^6 /uL (3.70-4.87); Red Cell Distribution Width 16 % (10-15)
[2020-06-21 11:42] LABS: ALT 12 U/L (7-52); AST 9 U/L (13-39); Albumin 2.9 g/dL (3.2-5.2); Albumin/Globulin Ratio 0.8 (1-3); Alkaline Phosphatase 66 U/L (34-104); Anion Gap 7 mmol/L (2-11); Blood Urea Nitrogen 11 mg/dL (6-24); C Reactive Protein 331.22 mg/L (<8.01); CO2 Carbon Dioxide 28 mmol/L (22-32); Calcium 8.9 mg/dL (8.6-10.3); Chloride 95 mmol/L (101-111); EGFR African American 130.7 (>60); Globulin 3.6 g/dL (2-4); Glucose 121 mg/dL (70-100); Magnesium 1.6 mg/dL (1.9-2.7); Potassium 4.3 mmol/L (3.5-5.0); Sodium 130 mmol/L (135-145); Total Protein 6.5 g/dL (6.4-8.9)
[2020-06-21] MEDS ORDERED: Magnesium Sulfate 2 gm BAG 2 GM/50 ML BAG IVPB ONE (11:47)
[2020-06-21 11:52] LABS: Activated Partial Thrombo Time 30.2 seconds (26.0-38.0); INR 2.22 (0.82-1.09)
[2020-06-21] MEDS ORDERED: Ondansetron 4 mg VIAL 2 MG/ML 2 ml VIAL IV PRN (13:23)
[2020-06-21] MEDS ORDERED: Morphine 4 MG/ML VIAL (1 ml) IV ONE (13:28)
[2020-06-21] MEDS ORDERED: NS 0.9% 1000 ml BAG 1,000 ML IV SCH (13:30)
[2020-06-21 15:10] LABS: Troponin I 0.03 ng/mL (<0.03)
[2020-06-21] MEDS ORDERED: Albuterol HFA INHALER 8 gm MDI INH PRN (16:31)
[2020-06-21] MEDS: Morphine 2 MG/ML SYRINGE IV PRN ×2 (16:54→20:09)
[2020-06-21] MEDS: Mometasone/Formoter 200/5 MDI INH SCH (20:12)
[2020-06-22] MEDS: Morphine 2 MG/ML SYRINGE IV PRN ×6 (00:43→17:20)
[2020-06-22 05:10] LABS: Hematocrit 30 % (35-47); Mean Corpuscular HGB Conc 33 g/dL (31-36); Mean Corpuscular Hemoglobin 29 pg (27-31); Mean Corpuscular Volume 87 fL (80-97); Platelet Count 313 10^3/uL (150-450); Red Blood Count 3.45 10^6 /uL (3.70-4.87); Red Cell Distribution Width 16 % (10-15); White Blood Count 11.3 10^3/uL (3.5-10.8)
[2020-06-22 05:32] LABS: EGFR African American 235.7 (>60); EGFR Non-African American 194.8 (>60); Potassium 4.2 mmol/L (3.5-5.0)
[2020-06-22 05:33] LABS: ABS Eosinophils 0.1 10^3/ul (0-0.6); ABS Monocytes 1.7 10^3/ul (0-0.8); ABS Neutrophils 8.5 10^3/ul (1.5-7.7); Eosinophil % 0.9 %; Lymphocyte % 8.9 %
[2020-06-22] MEDS: SPIRIVA Respimat (tiotropium) 2.5 mcg/inh Inhaler INH SCH (07:43)
[2020-06-22] MEDS: Mometasone/Formoter 200/5 MDI INH SCH ×2 (07:46→20:39)
[2020-06-22 08:29] LABS: Troponin I 0.03 ng/mL (<0.03)
[2020-06-22] MEDS ORDERED: Lorazepam PYXIS KEY PRN (20:19)
[2020-06-22] MEDS ORDERED: Polyethylene Glycol 3350 17 GM PACKET PO PRN (20:21)
[2020-06-22] MEDS: LORazepam 2 mg VIAL 1 ml IV PUSH PRN (21:28)
[2020-06-23] MEDS: LORazepam 2 mg VIAL 1 ml IV PUSH PRN ×5 (03:34→21:43)
[2020-06-23 05:17] LABS: Hematocrit 32 % (35-47); Hemoglobin 10.4 g/dL (12.0-16.0); Mean Corpuscular HGB Conc 33 g/dL (31-36); Mean Corpuscular Hemoglobin 28 pg (27-31); Mean Corpuscular Volume 87 fL (80-97); Mean Platelet Volume 7.9 fL (7.4-10.4); Platelet Count 371 10^3/uL (150-450); Red Blood Count 3.66 10^6 /uL (3.70-4.87); Red Cell Distribution Width 17 % (10-15); White Blood Count 15.1 10^3/uL (3.5-10.8)
[2020-06-23 05:37] LABS: Calcium 8.5 mg/dL (8.6-10.3); EGFR African American 160.7 (>60); EGFR Non-African American 132.8 (>60); Potassium 4.9 mmol/L (3.5-5.0)
[2020-06-23 05:44] LABS: ABS Basophils 0.1 10^3/ul (0-0.2); ABS Lymphocytes 0.6 10^3/ul (1.0-4.8); ABS Monocytes 2.3 10^3/ul (0-0.8); Eosinophil % 0.1 %; Lymphocyte % 4.2 %; Nucleated Red Blood Cells % 0.1
[2020-06-23] MEDS: Mometasone/Formoter 200/5 MDI INH SCH ×2 (07:20→20:25)
[2020-06-23] MEDS: SPIRIVA Respimat (tiotropium) 2.5 mcg/inh Inhaler INH SCH (07:20)
[2020-06-23] MEDS: Albuterol 2.5mg/3 ml (0.083%) NEB.SOLN INH PRN ×2 (07:28→14:12)
[2020-06-23] MEDS: Morphine 2 MG/ML SYRINGE IV PRN ×3 (15:13→19:47)
[2020-06-24] MEDS: Morphine 2 MG/ML SYRINGE IV PRN (00:55)
[2020-06-24] MEDS: LORazepam 2 mg VIAL 1 ml IV PUSH PRN (02:49)
[2020-06-24 03:20] VITALS: BP 142/63
== END 2020-06-24 06:15 | disposition expired | DRG 378 ==
LOC: ED 10:46 → MED 13:23
PROVIDERS: ADMIT Internal Medicine; ATTEND Internal Medicine Hematology & Oncology